=== PATIENT | male | born 1985 | race Caucasian/White ===

== ENCOUNTER 2017-05-07 14:28 | Emergency (ER) | payer OTHER ==
[~2017-05-07] VITALS: Ht 195.6 cm; Wt 111.7 kg
[2017-05-07 14:35] VITALS: BP 140/68; PULSE 105; RESP 16; TEMP 97.5; O2SAT 99
[2017-05-07] MEDS ORDERED: EMTR1TAB2 PO (15:02)
[2017-05-07] MEDS ORDERED: VITA1000 PO (15:02)
[2017-05-07] MEDS ORDERED: DOXY100C PO (15:02)
[2017-05-07] MEDS ORDERED: OMEGCAP PO (15:02)
[2017-05-07] MEDS ORDERED: IBUP800T23 PO (15:02)
[2017-05-07] MEDS ORDERED: COQ-100C5 (15:02)
[2017-05-07] MEDS ORDERED: primrose PO (15:02)
[2017-05-07] MEDS ORDERED: LORA-392 PO (15:02)
--- NOTE | 2017-05-07 15:03 | PD ---
HPI Chief Complaint: Complaint Time Seen by Provider: 14:43 Travel History International Travel<30 days: No Contact w/Intl Traveler<30days: No Traveled to known affect area: No History of Present Illness HPI 32-year-old male presents with right sided testicular pain is been present since Tuesday. Tuesday he had ultrasound at [facility] through coordination of an urgent care that was okay. He states he was started on doxycycline but the pain persists. He states he was not given any other medications including injections at time of treatment. He notes one partner that he has had for a while. He denies history of gonorrhea and chlamydia. He states he follows with Dr. Hernández regularly for his HIV and his counts are good. He states he talked with his surgeon that repaired his hernia and they wanted him to get his blood flow to his testicle checked he thinks. He states he doesn 't know if he's had that check with his last image. He denies any other concurrent complaints currently. Location is just above right testicle. Severity is moderate and pressure-like. PFSH Past Medical History Inguinal Hernia: Yes Medical other: Yes (hiv +, prior treatment for syphilis) Tetanus Vaccination: Unknown Influenza Vaccination: No Past Surgical History Eye Surgery: Yes (lasik) Other Surgery: Yes (hernia repair 07/28) Social History Alcohol Use: No Tobacco Use: No Substance Use: Yes (marijuana) Allergies-Medications (Allergen,Severity, Reaction): Coded Allergies: No Known Allergies (Unverified , 05/07/17) Reported Meds & Prescriptions Reported Meds & Active Scripts Active Ciprofloxacin (Ciprofloxacin HCl) 500 Mg Tab 500 Mg PO BID Reported Ibuprofen 800 Mg Tab 800 Mg PO Q8H PRN Coq-10 Tr (Coenzyme Q10 (Ubidecarenone)) 100 Mg Cap [place]-3 Fish Oil/Vitamin (Fish Oil-Cholecalciferol) 1,000-1,000 Mg Cap 1 Cap PO DAILY [primrose] 2,600 Mg PO DAILY Odefsey (Ffigjpwjzhcdq-Kwvcvjmpvhl-Wwrsgfieg Alafenam) 200-200-25 Mg Tab 1 Tab PO DAILY Vitamin D-1000 (Cholecalciferol) 1,000 Unit Tab 1,000 Units PO DAILY Ativan (Lorazepam) 0.5 Mg Tab 0.5 Mg PO Q6H PRN Doxycycline Hyclate 100 Mg Cap 100 Mg PO BID Review of Systems Except as stated in HPI: all other systems reviewed are Neg Physical Exam Narrative GENERAL: Well-nourished, well-developed patient. SKIN: Warm and dry. HEAD: Normocephalic and atraumatic. EYES: No injection or drainage. ENT: No nasal drainage noted. NECK: Supple, trachea midline. CARDIOVASCULAR: Regular rate and rhythm RESPIRATORY: No increased effort. No accessory muscle use. GASTROINTESTINAL: Abdomen soft, non-tender, nondistended. GENITOURINARY after permission with postdoctoral scholar: Testes descended bilaterally without evidence of rotation. No lesions or erythema. No urethral discharge. Bilateral cremasteric reflex intact NEUROLOGICAL: Awake and alert. Motor and sensory grossly within normal limits. Normal speech. Data Data Last Documented VS Vital Signs Date Time Temp Pulse Resp B/P (MAP) Pulse Ox O2 Delivery O2 Flow Rate FiO2 05/07/17 14:35 97.5 105 16 140/68 (92) 99 Orders Orders Urinalysis - C+S If Indicated (05/07/17 14:53) Gc And Chlamydia Pcr (05/07/17 14:53) Us Testicles W Doppler (05/07/17 14:53) Azithromycin Powd Pack (Zithromax Powd P (05/07/17 16:45) Lidocaine 1% Inj (50 Ml) (Xylocaine 1% I (05/07/17 16:45) Ceftriaxone Inj (Rocephin Inj) (05/07/17 16:45) Labs Laboratory Tests Test 05/07/17 15:07 Urine Collection Type CLEAN CATCH Urine Color YELLOW Urine Turbidity CLEAR Urine pH 6.0 Urine Specific [place] GREATER THAN 1.035 Urine Protein TRACE mg/dL Urine Glucose (UA) NEG mg/dL Urine Ketones TRACE mg/dL Urine Occult Blood NEG Urine Nitrite NEG Urine Bilirubin NEG Urine Leukocyte Esterase NEG Urine WBC 0-2 /hpf Urine Amorphous Sediment FEW Microscopic Urinalysis Comment CULT NOT INDICATED MDM Medical Decision Making Medical Screen Exam Complete: Yes Emergency Medical Condition: Yes Medical Record Reviewed: Yes (past history confirmed) Interpretation(s) Last 24 hours Impressions Scrotum Ultrasound 05/07/17 1453 Signed Impressions: Service Date/Time: Tuesday, May 07, 2017 15:40 - CONCLUSION: The heterogeneous echotexture and increased vascularity of the right testicle as compared to the left may represent inflammation from inguinal surgery versus infection. These findings can also be seen in intermittent torsion. Currently there is both arterial and venous flow to the right testicle.. Elisabeth Sol MD Differential Diagnosis UTI, stone, torsion, cyst Narrative Course Will check urinalysis and ultrasound and reevaluate Patient updated and agrees to discussion with urology Patient denies any new complaints, all questions answered. Patient knows that follow up is incumbent on them and to return to the emergency room immediately if new or worsening symptoms develop. Patient given strict return precautions, vitals reviewed and are normal, agrees to further workup as an outpatient. Physician Communication Physician Communication dr bowden states to give 1g of rocephin and azithromycin and send home on ciprofloxacin in addition to doxycycline and that he is already on, no need for blood work likely orchitis and can follow in the office next week Diagnosis Primary Impression: Orchitis Referrals: Chun Bowden MD call for appointment Patient Instructions: General Instructions Additional Instructions: return as needed, follow with dr bowden next week, tylenol as needed for pain, continue doxycycline in addition to ciprofloxacin Med/Other Pt SpecificInfo: Prescription(s) given Scripts Ciprofloxacin (Ciprofloxacin) 500 Mg Tab 500 MG PO BID for Infection, #7 TAB 0 Refills Prov: Breana Hughes MD 05/07/17 Disposition: 01 DISCHARGE HOME Condition: Stable Breana Hughes MD May 07, 2017 15:03
[2017-05-07 15:20] LABS: BLOOD, URINE NEG (NEG); GLUCOSE,URINE NEG (NEG); KETONE, URINE TRACE mg/dL (NEG); NITRITE,URINE NEG (NEG)
[2017-05-07 15:22] LABS: METHOD OF COLLECTION CLEAN CATCH; URINE COLOR YELLOW (YELLW/STRAW)
[2017-05-07 15:27] LABS: COMMENT (UR) CULT NOT INDICATED; COMMENT2 (UR) MUCOUS PRESENT; CULTURE IF INDICATED CULT NOT INDICATED; WBC, URINE 0-2 /hpf (0-5)
--- NOTE | 2017-05-07 16:17 | RADRPT ---
EXAM DATE/TIME: 05/07/2017 15:40 [facility] COMPARISON: No previous studies available for comparison. [facility], US TESTICLE, May 04, 2017 INDICATIONS : Testicular pain. MEDICAL HISTORY : Hernia, inguinal. SURGICAL HISTORY : Eye surgery. Hernia repair, inguinal. ENCOUNTER: Initial ACUITY: 4 - 6 days PAIN SCORE: 6/10 LOCATION: Bilateral testicles. MEASUREMENTS: RIGHT TESTICLE: 5.1 x 3.2 x 2.6cm LEFT TESTICLE: 4.7 x 3.1 x 2.3cm FINDINGS: RIGHT TESTICLE: The right testicle is mildly heterogeneous in echotexture as compared to the left testicle is slightl y increased in size as well as increased vascularity. There is normal arterial waveforms identified. The epididymis is unremarkable. LEFT TESTICLE: Homogeneous echotexture without intra or extratesticular mass. Blood flow is symmetric and within no rmal limits. No hydrocele or varicocele. Epididymis is within normal limits. SCROTUM: Within normal limits. CONCLUSION: The heterogeneous echotexture and increased vascularity of the right testicle as compared to the left may represent inflammation from inguinal surgery versus infection. These findings can also be seen i n intermittent torsion. Currently there is both arterial and venous flow to the right testicle.. Elisabeth Sol MD on May 07, 2017 at 16:12 Board Certified Radiologist. This report was verified electronically.
[2017-05-07] MEDS ORDERED: CIPR500T2 PO (16:34)
[2017-05-07] MEDS ORDERED: LIDOCAINE HCL 1% 50 ML VIAL IM ONE (16:45)
[2017-05-07] MEDS ORDERED: AZITHROMYCIN PWD FOR SUSP 1 GM PACKET PO ONE (16:45)
[2017-05-07 17:32] VITALS: BP 131/65
[2017-05-07 23:46] LABS: CHLAMYDIA PCR NOT DETECTED (NOT DETECT); NEISSERIA PCR NOT DETECTED (NOT DETECT)
== END 2017-05-07 17:48 | disposition home or self-care (01) ==
LOC: PHED 14:28
DX: N45.2 Orchitis (principal); Z21 Asymptomatic human immunodeficiency virus [HIV] infection status
CPT/HCPCS: 76870; 81001; 87491; 87591; 93975; 96372; 99285; J0696